=== PATIENT | male | born 1995 | race Hispanic/Latino ===

== ENCOUNTER 2018-12-05 19:42 | Emergency (ER) | payer BC, MEDICAID ==
[2018-12-05 21:12] VITALS: BP 125/70; PULSE 77; RESP 16; TEMP 98.6; O2SAT 99
--- NOTE | 2018-12-05 22:03 | ED PDOC ---
HPI: Allergic Reaction Time Seen by Provider: 12/05/18 21:51 Chief Complaint (Nursing): Allergic Reaction Chief Complaint (Provider): allergic reaction History Per: Patient History/Exam Limitations: no limitations Additional Complaint(s): 22 y/o M with no significant PMH who presents with allergic reaction after having dinner today. States that he developed an itchy rash over his trunk, face and back, which began to improve on its own. Pt states that he has been on Amoxicillin for an ear infection for the past 7 days. He has a hx of rash to penicillin as a child. Denies throat swelling/itching, SOB or chest pain. Past Medical History Reviewed: Historical Data, Nursing Documentation, Vital Signs Vital Signs: Last Vital Signs Temp 98.6 F 12/05/18 21:09 Pulse 77 12/05/18 21:09 Resp 16 12/05/18 21:09 BP 125/70 12/05/18 21:09 Pulse Ox 99 12/05/18 21:09 Primary Care Provider: FAMILY PROVIDER,NO - Medical History PMH: No Chronic Diseases - Family History Family History: States: Diabetes - Immunization History Hx Tetanus Toxoid Vaccination: Yes (2005 due for Tetanus booster 2015) - Home Medications Home Medications: Ambulatory Orders Medication Instructions Recorded Sulfamethoxazole/Trimethopri 1 tab PO BID #14 tab 04/07/15 [Bactrim Ds 800 mg-160 mg] - Allergies Allergies/Adverse Reactions: Allergies Allergy/AdvReac Type Severity Reaction Status Date / Time Penicillins Allergy RASH Verified 12/05/18 21:08 Review of Systems Constitutional: Negative for: Fever Cardiovascular: Negative for: Chest Pain Respiratory: Negative for: Shortness of Breath Gastrointestinal: Negative for: Nausea, Vomiting Physical Exam - Reviewed Nursing Documentation Reviewed: Yes Vital Signs Reviewed: Yes - Physical Exam Appears: Positive for: Non-toxic Head Exam: Positive for: ATRAUMATIC Skin: Positive for: Rash (diffuse pink maculopapular rash on torso/back, face. No urticaria) ENT: Positive for: Normal ENT Inspection, Pharynx Is (no swelling), TM Is/Are (no erythema B/L, ). Negative for: Sinus Pain/Drainage, Nasal Congestion, Pharyngeal Erythema, Tonsillar Swelling Cardiovascular/Chest: Positive for: Regular Rate, Rhythm Respiratory: Positive for: Normal Breath Sounds Neurological/Psych: Positive for: Awake, Alert, Oriented - ECG O2 Sat by Pulse Oximetry: 99 Disposition - Clinical Impression Clinical Impression: Allergic reaction - Patient ED Disposition Is Patient to be Admitted: No Counseled Patient/Family Regarding: Diagnosis, Need For Followup, Rx Given - Disposition Disposition: Routine/Home Disposition Time: 23:15 Condition: IMPROVED Forms: [employer] ([place]) Medical Decision Making Medical Decision Making: Benadryl 50mg PO x 1 Pepcid 20mg PO x 1 Prednisone 40mg PO x 1 Re-evaluation 23:00: pt re-evaluated, rash on torso with mild improvement and patient states that itching has improved significantly. Continues to deny SOB or throat swelling. Stable for d/c home with return instructions provided. Patient advised to stop taking Amoxicillin and no further antibiotics
== END 2018-12-06 00:10 | disposition home or self-care (01) ==
LOC: H.ER 19:42
DX: T78.40XA Allergy, unspecified, initial encounter (principal); Z88.0 Allergy status to penicillin